=== PATIENT | female | born 1970 | race Caucasian/White ===

== ENCOUNTER 2017-12-30 16:54 | Outpatient (RCR) | payer BC, SELFPAY ==
--- NOTE | 2017-12-30 16:00 | PAPFT_PTH ---
PATIENT: Maribel Duarte LOC: [facility] U#:[id number] AGE/SX: 47/F ROOM: RE12/30/[address]: Blessing Dowell MD, DC : 1970 BED: DIS: 01/07/2018 SPEC #: [id number] RECD: 12/31/17 12:49 STATUS: AIYANA REQ #: [id number] AL: 12/30/17 16:[address]: Blessing Dowell DEPT: REPLACED BY [facility] Cytology RECD BY: Gracy Duff Tissues: 1 - CX/ENDOCX FOR PAP SMEARS Procedures: PAP THIN PREP/UVM Screening HPV DNA PROBE Comments: [id number]
== END 2018-01-07 23:59 | disposition home or self-care (01) ==
LOC: LBN 16:54
PROVIDERS: PCP Family Medicine; Visit Provider Family Medicine
DX: Z12.4 Encounter for screening for malignant neoplasm of cervix (principal); Z11.51 Encounter for screening for human papillomavirus (HPV)
CPT/HCPCS: 88142; 87624

== ENCOUNTER 2018-01-05 01:06 | Outpatient (CLI) | payer BC, SELFPAY ==
--- NOTE | 2018-01-05 08:31 | DI.RAD_ITS ---
SYMPTOM/DIAGNOSIS: DERANGEMENT OF RT KNEE, M23.91 RIGHT KNEE: Four views. No priors. There is mild joint space narrowing and periarticular spurring involving all three joint compartments. No acute fracture, dislocation , lytic or sclerotic lesion is identified. There is a small enthesophyte at the superior aspect of the patella. The soft tissues are unremarkable. IMPRESSION: Moderate degenerative changes of the right knee.
[2018-01-05 10:38] LABS: TSH (W/Ref FT4) 3.02 uIU/mL (0.358-3.74)
[2018-01-05 10:52] LABS: Vitamin D 25 Total 31.6 ng/ml (30-100)
== END 2018-01-05 01:26 ==
PROVIDERS: PCP Family Medicine; Visit Provider Family Medicine
DX: Z00.00 Encounter for general adult medical examination without abnormal findings (principal); M23.91 Unspecified internal derangement of right knee; M17.11 Unilateral primary osteoarthritis, right knee; E03.9 Hypothyroidism, unspecified; E55.9 Vitamin D deficiency, unspecified
CPT/HCPCS: 36415; 73562; 82306; 84443

== ENCOUNTER 2019-12-29 02:26 | Outpatient (CLI) | payer BC, SELFPAY ==
[2019-12-29 15:49] LABS: TSH (W/Ref FT4) 1.72 uIU/mL (0.36-3.74)
[2019-12-30 05:18] LABS: Vitamin D 25 Total 37.5 ng/ml (30-100)
== END 2019-12-29 02:46 ==
PROVIDERS: PCP Family Medicine; Visit Provider Family Medicine
DX: Z00.00 Encounter for general adult medical examination without abnormal findings (principal)
CPT/HCPCS: 36415; 82306; 84443

== ENCOUNTER 2020-02-07 20:59 | Outpatient (REF) | payer BC, SELFPAY ==
--- NOTE | 2020-02-07 14:30 | PAPFT_PTH ---
PATIENT: Maribel Duarte LOC: [facility]#:[id number] AGE/SX: 49/F ROOM: RE02/07/[address]: Blessing Dowell MD, DC : 1970 BED: DIS: 02/07/2020 SPEC #: [id number] RECD: 02/08/20 13:02 STATUS: AIYANA REPilar #: [id number] AL: 02/07/20 14:[address]: Blessing Dowell DEPT: [facility] Cytology RECD BY: Gracy Duff Tissues: 1 - CX/ENDOCX FOR PAP SMEARS Procedures: PAP THIN PREP/UVM Screening HPV DNA PROBE Comments: [id number]
== END 2020-02-07 21:19 ==
LOC: LBN 20:59
PROVIDERS: PCP Family Medicine; Visit Provider Family Medicine
DX: Z12.4 Encounter for screening for malignant neoplasm of cervix (principal); R87.610 Atypical squamous cells of undetermined significance on cytologic smear of cervix (ASC-US); R87.810 Cervical high risk human papillomavirus (HPV) DNA test positive; Z11.51 Encounter for screening for human papillomavirus (HPV)
CPT/HCPCS: 88142; 87624

== ENCOUNTER 2020-02-24 17:21 | Outpatient (REF) | payer BC, SELFPAY ==
--- NOTE | 2020-02-24 16:25 | ENDO_PTH ---
PATIENT: Maribel Duarte LOC: [facility]#:[id number] AGE/SX: 49/F ROOM: RE02/24/[address]: Lucero Monroe : 1970 BED: DIS: 02/24/2020 SPEC #: [id number] RECD: 02/24/20 17:47 STATUS: AIYANA REQ #: [id number] AL: 02/24/20 16:[address]: Lucero Monroe DEPT: Surgical Specimen RECD BY: Gracy Duff ENTERED: 02/24/20 17:48 SP TYPE: Endo OTHR DR: Blessing Dowell MD, DC Tissues: 1 - ENDOCERVICAL BX/CURRETTE Procedures: GROSS AND MICRO LEVEL 4 Comments: [id number]
== END 2020-02-24 17:41 ==
LOC: LBN 17:21
PROVIDERS: PCP Family Medicine; Visit Provider Obstetrics & Gynecology Gynecology
DX: N87.9 Dysplasia of cervix uteri, unspecified (principal); R87.610 Atypical squamous cells of undetermined significance on cytologic smear of cervix (ASC-US)
CPT/HCPCS: 88305

== ENCOUNTER 2020-09-22 08:11 | Day surgery (SDC) | payer BC, SELFPAY ==
[2020-09-22 08:30] VITALS: BP 127/83; PULSE 77; RESP 16; TEMP 36.3; O2SAT 96
[2020-09-22] MEDS: Lactated Ringers 1,000 ML 80 ML IV (08:45)
--- NOTE | 2020-09-22 08:57 | W.ANESPRE ---
General Info Date of Service Date Performed: 09/22/20 Height: 5 ft 3 in Weight: 81 kg Body Mass Index (BMI): 31.6 Surgical Procedure: Operation Date: 09/22/20 09:20 Proposed Procedures Side Surgeon p Colonoscopy Cheli Andrews DO Meds Allergies and Home Medications Allergies Allergy/AdvReac Type Severity Reaction Status Date / Time No Known Drug Allergies Allergy Verified 09/22/20 08:27 Home Medication Medication Instructions Recorded levonorgestrel [Mirena] 1 ea INTRAUTERINE ONCE #1 implant 08/29/17 levothyroxine 100 mcg tablet 100 mcg PO DAILY #90 tab-cap 12/30/19 bisacodyl 5 mg tablet,delayed 5 mg PO ONCE #4 tab 09/18/20 release polyethylene glycol 3350 17 238 g PO ONCE #238 g 09/18/20 gram/dose oral powder Current Visit Medications: Current Medications Generic Name Dose Route Start Last Admin Trade Name Freq PRN Reason Stop Dose Admin Ringer's Solution 1,000 mls @ 80 mls/hr 09/22/20 06:00 09/22/20 08:45 IV 10/21/20 23:59 80 mls/hr INFUSION ROBBY Administration IV Miscellaneous Supplies 1 each 09/22/20 06:00 Iv Access IV 10/21/20 23:59 DIRECTED ROBBY Sodium Chloride 0 ml 09/22/20 06:00 Normal Saline Flush 10 Ml Syr IV 10/21/20 23:59 PRN PRN Sodium Chloride 0 ml 09/22/20 06:00 Normal Saline 10 Ml Vial IJ 10/21/20 23:59 DIRECTED PRN Sterile Water 0 ml 09/22/20 06:00 Water,Injection,Sterile 10 Ml Vial IJ 10/21/20 23:59 DIRECTED PRN PFSH Active Problems Active Problems: Problem Status Onset Code History of colposcopy Z98.890 ASCUS favoring dysplasia HPV test positive ASCUS with positive high risk HPV Encounter for screening colonoscopy Z12.11 Breast mass, right N63.10 Eye lesion H57.9 Derangement of right knee M23.91 Actinic keratoses L57.0 Synovial cyst of popliteal space M71.20 LGSIL (low grade squamous intraepithelial dysplasia) 03/06/15 Hypothyroidism 02/06/02 E03.9 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 BILATERAL Clicking jaw syndrome LEFT Dysfunctional uterine bleeding (02/07/04) right ovarian cyst 2.5cm (2004) 6mo. F/U stable 2.2cm IUD - now good HPV in female (11/08/14) Hypothyroidism (02/06/02) LGSIL (low grade squamous intraepithelial dysplasia) (03/06/15) Synovial cyst of popliteal space Surgical History Surgical History hernia repair knee repair Tobacco Smoking/Tobacco Use Status: Never Passive smoking exposure: No Alcohol Alcohol Intake: current Alcohol intake frequency: a few times a week Alcohol type: beer, wine and hard liquor Substance Use Substance use: Never Vital Signs and Lab Results Vital Signs Most Recent Vital Signs in EMR: Most Recent Vital Signs Temp Pulse Resp BP Pulse Ox 36.3 C L 77 16 127/83 96 09/22/20 08:30 09/22/20 08:30 09/22/20 08:30 09/22/20 08:30 09/22/20 08:30 Point of Care Results Point of Care Results: POC- Test(urine) Negative 09/22/20 08:36 Lab Results Blood Type / Crossmatch: No Data to Display Complete Blood Count: No Data to Display Complete Metabolic Panel: No Data to Display Liver Function Panel: No Data to Display Coagulation Panel: No Data to Display Cardiac Panel: No Data to Display Arterial Blood Gas: No Data to Display Venous Blood Gas: No Data to Display Pancreas Panel: No Data to Display Thyroid Panel: No Data to Display Infectious Disease: No Data to Display Blood Cultures: No Data to Display Toxicology Panel: No Data to Display Panel: No Data to Display Anesthesia Assessment and Plan Anesthesia History Personal History: No History of Anesthesia Complications Family History: No Family History of Anesthesia Complications Exercise Tolerance Exercise Tolerance: Metabolic Equivalents>4 Pertinent Negatives Pertinent Negatives: No Symptoms of GERD, No Major Cardiovascular Symptoms or Complaints, No Major Pulmonary Symptoms or Complaints and No History of CVA/TIA Cardiac & Pulmonary Exam Cardiac Exam: Normal S1/S2 Heart Sounds Pulmonary Exam: Clear Bilateral Breath Sounds Airway Exam Known Difficult Airway: No Mallampati Class: 2 Mouth Opening: Normal (> 3cm) Thyromental Distance: Greater than 3 cm Neck Range of Motion: Full ROM Neck Circumference: Normal Teeth Condition: Normal Dentition ASA Classification ASA Score: ASA 2 Emergency Case?: No NPO Status NPO Status: NPO Clears >2 hours, Solids >8 hours Status Status: Negative HCG Anesthesia Plan Resuscitation Status: Full Code Anesthesia Technique: General Anesthesia Airway Planned: Natural Airway Monitors Used: Standard Monitors
[2020-09-22 08:58] VITALS: BMI 31.6
--- NOTE | 2020-09-22 10:34 | W.ANESPOSTOP ---
Postoperative Evaluation Date, Time and Location Date Performed: 09/22/20 Time Performed: 10:35 Patient Location: Day Surgery Unit Vital Signs Most Recent Imported Vital Signs: Most Recent Vital Signs Temp Pulse Resp BP Pulse Ox 36.3 C L 77 16 127/83 96 09/22/20 08:30 09/22/20 08:30 09/22/20 08:30 09/22/20 08:30 09/22/20 08:30 Most Recent Manually Entered Vital Signs: Adult Blood Pressure: 98/63 Heart Rate: 70 Respirations: 12 Oxygen Saturation (%): 95 Temperature (C): 36.1 C Pain Score (0-10 Scale): 0 Pain Score Most Recent Pain Score: Most Recent Pain Score Pain Level 0 09/22/20 08:30 Assessment Mental Status: Awake (Alert & Oriented to Patient Baseline) Airway and Respiratory Function: Patent airway with normal (patient baseline) respiratory exam Cardiovascular Function: Hemodynamically Stable Hydration Status: Adequately Hydrated Nausea & Vomiting: No Nausea or Vomiting Pain: Pt. Denies Any Pain Peripheral Nerve Block: Patient did not receive a nerve block
[2020-09-22 10:36] VITALS: BP 98/63; PULSE 70; RESP 12; TEMPC 36.1; O2SAT 95
[2020-09-22 10:38] VITALS: BP 98/63; PULSE 68; RESP 18; TEMP 36.1; O2SAT 96
--- NOTE | 2020-09-22 10:42 | W.COLOREPORT ---
Date of service: 09/22/20 Time of Service: 10:42 Colonoscopy Report Date of procedure: 09/22/20 Pre-op diagnosis general: CRC screen Post-op diagnosis procedure note: other (E. hemorrhoids ) Surgeon: Cheli Andrews Anesthesia Type: General:No Airway Estimated blood loss (mL): 0 Pathology: none sent Complications: Other Disposition: no change Prep: Miralax/Dulcolax Retraction Time: 8 Procedure Description: After informed consent was obtained the patient was taken to the procedure room and placed in a left decubitous position. Monitors were applied and a time out was done. The patients name, date of , procedure, allergies to medications and metal in their body was reviewed. The patient was then sedated. Once sedated and comfortable a rectal exam was done. External exam shows noninflamed or thrombosed external hemorrhoids l. Internal exam revealed a normal sphincter tone and no palpable masses. The scope was then introduced and retrofelexed. No internal hemorrhoids were identified. The scope was then advanced to the cecum without good difficulty. The TI and appendiceal orifice were identified. The prep was 8. The scope was then slowly retracted over minutes back into the rectum. The scope was removed and There are no polyps, AVMs, diverticula visualized today. the patient was woken up and taken back to Same day surgery in stable condition. The patient tolerated the procedure well and there were no immediate complications. Follow up: The patient should follow up in 10 years unless they develop changes in bowel habits or other new gastrointestinal complaints.
--- NOTE | 2020-09-22 10:44 | PDOC.DSDIS_ITS ---
Discharge Plan Disposition Patient Disposition: HOME Condition: Good Discharge Details Reason For Visit: CRC screening Attending Provider: Cheli Andrews Primary Care Provider: Blessing Dowell Home Meds and New Rx's Prescriptions: Continued Mirena 1 EACH intrauterine device 1 ea Intrauterine ONCE Qty: 1 RF: 0 levothyroxine 100 mcg tablet 100 mcg PO DAILY Qty: 90 RF: 12 Discontinued polyethylene glycol 3350 17 gram/dose powder 238 g PO ONCE Qty: 238 RF: 0 bisacodyl [Dulcolax (bisacodyl)] 5 mg tablet,delayed release (DR/EC) 5 mg PO ONCE Qty: 4 RF: 0 Discharge Instructions Additional Instructions: DSU Colonoscopy Post- Op Instructions Instructions for Everyone who is given Anesthesia: For your safety, please do the following for the next tw enty-four (24) hours: *Do Not operate a motor vehicle (car, truck, motorcycle, etc.) *Do Not drink alcoholic beverages or use any recreational drugs for the first 24 hours or while taking pain medications. The medications in your body may have a reaction that can be dangerous. *Do Not make any important decisions or sign any important papers. Findings: Normal colon Follow up: repeat in 10 yrs, unless notice change in bowels/persistent bleeding/unexplained wt loss. 1. No lifting over 20 pounds or strenuous activity for the first 24 hours after your procedure. After 24 hours there are no restrictions on your activity but you may feel fatigued for a few days. 2. After you arrive home you may have a light meal and return to your normal diet as you can tolerate it without feeling sick to your stomach. 3. You may have a bloated, gaseous feeling in your belly (abdomen) after a colonoscopy. Passing gas and belching will help. Walking or lying down on your left side with your knees flexed may relieve the discomfort. Call the office at [phone] (Office) or [phone] (Hospital) right away if you notice any of the following: a.Vomiting of blood or ?coffee ground stools?. b.Rectal bleeding 1Tbsp, blood clots or continuous bleeding. c.Severe belly (abdominal) pain. d.A hard distended belly (abdomen) and an inability to pass gas. 4. Please don?t expect to have a normal BM (bowel movement) for 2-3 days after your procedure. 5. If there are questions regarding the findings of your procedure, please contact your doctor 6. If you are unable to contact your doctor with a problem, contact the hospital at [phone]. 7. Continue all your regular medications unless directed otherwise. I understand the above instructions and have no questions. Signature of Patient or Adult Escort Name of Responsible Adult Escort Signature of Nurse Date/Time Activity:: see above Diet:: see above Discharge Orders Discharge Orders: Discharge Order (Routine); Ordered 09/22/20 Ordered By: Cheli Andrews DS: Diagnosis Discharge Diagnosis (1) Colon cancer screening: Status: Acute
[2020-09-22 11:13] VITALS: BP 113/65; PULSE 58; RESP 16; TEMP 36.2; O2SAT 99
== END 2020-09-22 10:15 | disposition home or self-care (01) ==
PROVIDERS: PCP Family Medicine; Visit Provider Surgery
PROC: 0DJD8ZZ Inspection of Lower Intestinal Tract, Via Natural or Artificial Opening Endoscopic (ICD-10-PCS; CPT 45378; principal; 2020-09-22 09:15)
DX: Z12.11 Encounter for screening for malignant neoplasm of colon (principal); K64.4 Residual hemorrhoidal skin tags
CPT/HCPCS: 45378; 81025

== ENCOUNTER 2020-09-22 08:50 | Outpatient (REF) | payer BC, SELFPAY ==
[2020-09-22 10:06] LABS: TSH (W/Ref FT4) 3.22 uIU/mL (0.36-3.74)
[2020-09-22 21:47] LABS: Calculated LDL 233 mg/dL (<100); Cholesterol 319 mg/dL (<200); HDL Cholesterol 53 mg/dL (40-60); Triglyceride 165 mg/dL (<150)
== END 2020-09-22 08:51 | disposition home or self-care (01) ==
LOC: LBO 08:50
PROVIDERS: PCP Family Medicine; Visit Provider Family Medicine
DX: Z00.00 Encounter for general adult medical examination without abnormal findings (principal)
CPT/HCPCS: 80061; 84443

== ENCOUNTER 2021-03-15 11:12 | Outpatient (REF) | payer BC, SELFPAY ==
--- NOTE | 2021-03-15 10:00 | PAPFT_PTH ---
PATIENT: Maribel Duarte LOC: [facility]#:[id number] AGE/SX: 50/F ROOM: RE03/15/[address]: Blessing Dowell MD, DC : 1970 BED: DIS: 03/15/2021 SPEC #: [id number] RECD: 03/15/21 12:45 STATUS: AIYANA REPilar #: [id number] AL: 03/15/21 10:[address]: Blessing Dowell DEPT: [facility] Cytology RECD BY: Gracy Duff Tissues: 1 - CX/ENDOCX FOR PAP SMEARS Procedures: PAP THIN PREP/UVM Screening HPV DNA PROBE Comments: [id number]
== END 2021-03-15 11:13 | disposition home or self-care (01) ==
LOC: LBN 11:12
PROVIDERS: PCP Family Medicine; Visit Provider Family Medicine
DX: Z12.4 Encounter for screening for malignant neoplasm of cervix (principal); Z11.51 Encounter for screening for human papillomavirus (HPV)
CPT/HCPCS: 88142; 87624

== ENCOUNTER 2021-05-17 00:59 | Outpatient (CLI) | payer BC, SELFPAY ==
--- NOTE | 2021-05-17 06:30 | DI.MAMMO_ITS ---
Exam(s) MAMMO SCREENING EXAM: MAMMO SCREENING CLINICAL HISTORY: screening,Z12.39 TECHNIQUE: Mammograms were interpreted according to the usual protocol including computer analysis w [employer] CAD system, tomosynthesis and C-view imaging. COMPARISON: FINDINGS: The breasts are heterogeneously dense. No dominant mass is identified in either breast. However the re is an area of asymmetric density with a vaguely masslike appearance seen superiorly and centrally in the left breast on MLO view. Additional evaluation with spot compression view and breast ultrasou nd recommended. No dominant mass or clumped microcalcification of the right breast. There are scattered microcalcifications of the left breast, grossly unchanged from prior outside exam ination of May 2020. Prior whole breast mammography not available for comparison. IMPRESSION: Additional mammographic views left breast and left breast ultrasound requested as described above. BI-RADS Category 0 - Assessment Incomplete: Need additional imaging evaluation Breast Density - Category C - Heterogeneously dense
== END 2021-05-17 01:19 ==
PROVIDERS: PCP Family Medicine; Visit Provider Family Medicine
DX: Z12.31 Encounter for screening mammogram for malignant neoplasm of breast (principal); R92.8 Other abnormal and inconclusive findings on diagnostic imaging of breast
CPT/HCPCS: 77063; 77067

== ENCOUNTER 2021-06-01 01:32 | Outpatient (CLI) | payer BC, SELFPAY ==
--- NOTE | 2021-06-01 10:45 | DI.MAMMO_ITS ---
Exam(s) MG MAMMO SCREEN CALL BACK UNI US BREAST LT LIMITED EXAM: MG MAMMO SCREEN CALL BACK UNI and U/S breast LT limited CLINICAL HISTORY: F/U ABNL MAMMO, ASYMMETRIC DENSITY SUPERIORLY CENTRALLY IN LT BREAST. TECHNIQUE: Craniocaudal and mediolateral oblique Full Field Digital Mammography views of the left br east with Computer Aided Diagnosis followed by Tomosynthesis and left breast ultrasound. COMPARISON: Comparison with prior examinations. FINDINGS: Mammography/Tomosynthesis: Masses/Architectural Distortion: There is a well-circumscribed ovoid density again seen in the upper outer quadrant of the left breast. Microcalcifictions: No suspicious pleomorphic-type are seen. Skin Thickening/Nipple Retraction: None. Limited left breast US: Echotexture: Normal appearance of the glandular tissue. Shadowing: No suspicious foci. Cyst: There are cysts seen in the upper inner and upper outer quadrants of the left breast. The larg est spans the upper outer and upper inner quadrants. It measures 2.8 cm maximally and is a simple cy st. This likely corresponds to the large ovoid density seen on the mammogram. Several smaller cysts are also noted. The next largest lies at 3 o'clock 3 cm from the nipple and measures 1.3 cm. Solid lesions: None seen. Ductal dilation: None. IMPRESSION: 1. No evidence of malignancy is noted. 2. Unless there is more urgent need, follow-up screening mammography is recommended, as per [place] [employer] guidelines. 3. The findings were discussed with the patient on the date of the examination. BI-RADS Category 2 - Benign Findings Breast Density - Category C - Heterogeneously dense Breast density Category C or D implies that the patient has dense breast tissue. Dense breast tissue can make it harder to find cancer on a mammogram. Dense breast tissue is also associated with an incr eased risk of breast cancer. This information about the result of the mammogram report was provided to the patient to raise their awareness. Use this report when you speak with the patient about their risks for breast cancer, which includes their family history. At that time, you may recommend additional screening tests (Ultrasoun d or MRI) as these tests may add significant information. A negative radiographic report should not delay biopsy if a dominant or clinically suspicious mass is present. Up to ten percent of cancers are not identified on mammography. A negative report may reinforce clinical impression. Adenosis and dense breasts may obscure an underlying neoplasm. False positive reports average 6 to 10%. Patient will receive a letter notifying them of these results.
== END 2021-06-01 01:52 ==
PROVIDERS: PCP Family Medicine; Visit Provider Family Medicine
DX: Z12.31 Encounter for screening mammogram for malignant neoplasm of breast (principal); R92.8 Other abnormal and inconclusive findings on diagnostic imaging of breast
CPT/HCPCS: 76642; 77063; 77067

== ENCOUNTER 2021-07-24 11:53 | Outpatient (REF) | payer BC, SELFPAY ==
--- NOTE | 2021-07-24 10:00 | SKI_PTH ---
PATIENT: Maribel Duarte LOC: [facility] U#:[id number] AGE/SX: 50/F ROOM: RE07/24/[address]: Blessing Dowell MD, DC : 1970 BED: DIS: 07/24/2021 SPEC #: [id number] RECD: 07/24/21 12:40 STATUS: AIYANA REQ #: [id number] AL: 07/24/21 10:[address]: Blessing Dowell DEPT: Surgical Specimen RECD BY: Gracy Duff Tissues: 1 - SKIN BIOPSY(SHAVE/PUNCH) Procedures: SKIN LEVEL 4 Comments: [id number]
== END 2021-07-24 11:54 | disposition home or self-care (01) ==
LOC: LBN 11:53
PROVIDERS: PCP Family Medicine; Visit Provider Family Medicine
DX: D23.61 Other benign neoplasm of skin of right upper limb, including shoulder
CPT/HCPCS: 88305

== ENCOUNTER 2022-05-22 01:16 | Outpatient (CLI) | payer BC, SELFPAY ==
--- NOTE | 2022-05-22 06:45 | DI.MAMMO_ITS ---
Exam(s) MAMMO SCREENING EXAM: MAMMO SCREENING CLINICAL HISTORY: screening,Z12.39 TECHNIQUE: Bilateral full field digital CC and MLO mammographic images were obtained with 3D tomosyn thesis and utilizing computer aided detection (CAD). COMPARISON: Available for comparison. FINDINGS: Masses/Architectural Distortion: There is again seen a well-circumscribed nodule in the upper central left breast consistent with the previously identified cyst. No suspicious masses are seen. No area s of architectural distortion are present. Microcalcifications: No suspicious pleomorphic-type are seen. Skin Thickening/Nipple Retraction: None. IMPRESSION: 1. No significant interval change with no specific features of malignancy noted. 2. Unless there is more urgent need, screening mammography is recommended, as per [place] [employer] guidelines. BI-RADS Category 2 - Benign Findings Breast Density - Category C - Heterogeneously dense Breast density category C or D implies that the patient has dense breast tissue. Dense breast tissue is very common and is not abnormal but dense breast tissue can make it harder to find cancer on a ma mmogram. Also, dense breast tissue may increase their breast cancer risk. This information about the result of the mammogram report was provided to the patient to raise their awareness. Use this report when you speak with the patient about their risks for breast cancer, which includes their family hist ory. At that time, you may recommend for more screening tests (Ultrasound or MRI) as they might be us eful based on their risk. A negative radiographic report should not delay biopsy if a dominant or clinically suspicious mass is present. Up to ten percent of cancers are not identified on mammography. A negative report may reinforce clinical impression. Adenosis and dense breasts may obscure an underlying neoplasm. False positive reports average 6 to 10%. Patient will receive a letter notifying them of these results.
[2022-05-22 09:43] LABS: Hemoglobin A1C 5.6 % (<5.7)
[2022-05-22 10:04] LABS: TSH (W/Ref FT4) 4.89 uIU/mL (0.36-3.74)
[2022-05-22 10:25] LABS: FREE T4 1.02 ng/dL (0.76-1.46)
== END 2022-05-22 01:36 ==
LOC: DI 01:16
PROVIDERS: PCP Family Medicine; Visit Provider Family Medicine
DX: Z00.00 Encounter for general adult medical examination without abnormal findings (principal); Z13.21 Encounter for screening for nutritional disorder; E03.9 Hypothyroidism, unspecified; Z13.1 Encounter for screening for diabetes mellitus
CPT/HCPCS: 36415; 77063; 77067; 83036; 84439; 84443

== ENCOUNTER → 2023-05-26 03:00 | Outpatient (CLI) | payer BC, SELFPAY ==
--- NOTE | 2023-05-26 07:15 | DI.MAMMO_ITS ---
Exam(s) MAMMO SCREENING EXAM: MAMMO SCREENING CLINICAL HISTORY: screening,z12.39. TECHNIQUE: Bilateral full field digital CC and MLO mammographic images were obtained with 3D tomosyn thesis and utilizing computer aided detection (CAD). COMPARISON: Prior mammograms were reviewed. FINDINGS: There has been no significant change in the appearance and distribution of the fibroglandular tissue. There are no new focal right breast findings. In the left breast the previously described superiorly located nodule as significantly decreased in s ize, further evidence that it was a simple cyst. There are no new obvious spiculated masses nor malignant-appearing microcalcification groups in eithe r breast. There is no significant architectural distortion nor skin thickening-retraction. IMPRESSION: No radiographic evidence of malignancy. Previously present large cyst in the upper left breast is les s evident on the present study and therefore has most probably significantly decreased in size. BI-RADS Category 2 - Benign Findings Breast Density - Category C - Heterogeneously dense Breast density Category C or D implies that the patient has dense breast tissue. Dense breast tissue can make it harder to find cancer on a mammogram. Dense breast tissue is also associated with an incr eased risk of breast cancer. This information about the result of the mammogram report was provided to the patient to raise their awareness. Use this report when you speak with the patient about their risks for breast cancer, which includes their family history. At that time, you may recommend additional screening tests (Ultrasoun d or MRI) as these tests may add significant information. A negative radiographic report should not delay biopsy if a dominant or clinically suspicious mass is present. Up to ten percent of cancers are not identified on mammography. A negative report may reinforce clinical impression. Adenosis and dense breasts may obscure an underlying neoplasm. False positive reports average 6 to 10%. Patient will receive a letter notifying them of these results.
== END ==
PROVIDERS: PCP Family Medicine; Visit Provider Family Medicine
DX: Z12.31 Encounter for screening mammogram for malignant neoplasm of breast (principal)
CPT/HCPCS: 77063; 77067

== ENCOUNTER 2023-05-27 12:12 | Outpatient (REF) | payer BC, SELFPAY ==
--- NOTE | 2023-05-27 10:40 | ENDOMET_PTH ---
PATIENT: Maribel Daurte LOC: [facility] U#:[id number] AGE/SX: 52/F ROOM: RE05/27/[address]: Pham Stauffer MD : 1970 BED: DIS: 05/27/2023 SPEC #: [id number] RECD: 05/27/23 12:30 STATUS: AIYANA REQ #: [id number] AL: 05/27/23 10:[address]: Pham Stauffer DEPT: Surgical Specimen RECD BY: Gracy Duff ENTERED: 05/27/23 12:30 SP TYPE: Endomet OTHR DR: Blessing Dowell MD, DC Tissues: 1 - ENDOMETRIUM BX/CURRETTE Procedures: GROSS AND MICRO LEVEL 4 Comments: [id number]
== END 2023-05-27 12:13 | disposition home or self-care (01) ==
LOC: LBN 12:12
PROVIDERS: PCP Family Medicine; Visit Provider Obstetrics & Gynecology
DX: N92.4 Excessive bleeding in the premenopausal period (principal)
CPT/HCPCS: 88305

== ENCOUNTER 2023-06-06 02:11 | Outpatient (CLI) | payer BC, SELFPAY ==
[2023-06-06 09:06] LABS: Hemoglobin A1C 5.6 % (<5.7)
[2023-06-06 10:02] LABS: ALT 57 U/L (14-59); AST 25 U/L (15-37); Albumin 4.1 g/dL (3.4-5.0); Alkaline Phosphatase 65 U/L (46-116); Anion Gap 10.1 mmol/L (3-11); BUN 17 mg/dL (7-18); Bilirubin, Total 0.6 mg/dL (0.2-1.0); CO2 27.9 mmol/L (21.0-32.0); CREATININE 0.9 mg/dL (0.55-1.02); Calcium 8.9 mg/dL (8.5-10.1); Calculated LDL 202 mg/dL (<100); Chloride 105 mmol/L (98-107); Cholesterol 281 mg/dL (<200); Estimated GFR 76.44 (mL/min/1.73m2); Glucose 97 mg/dL (74-106); HDL Cholesterol 46 mg/dL (40-60); Potassium 4.3 mmol/L (3.5-5.1); Sodium 143 mmol/L (136-145); TSH (W/Ref FT4) 4.66 uIU/mL (0.36-3.74); Total Protein 7.3 g/dL (6.4-8.2); Triglyceride 168 mg/dL (<150)
[2023-06-06 10:24] LABS: FREE T4 0.91 ng/dL (0.76-1.46)
[2023-06-09 14:11] LABS: Apolipoprotein A1, S 119 mg/dL (>=140); Apolipoprotein B, S 144 mg/dL (See Comment); Apolipoprotein B/A 1 ratio 1.2 (See Comment)
== END 2023-06-06 02:12 | disposition home or self-care (01) ==
PROVIDERS: PCP Family Medicine; Visit Provider Family Medicine
DX: I10 Essential (primary) hypertension (principal); Z00.00 Encounter for general adult medical examination without abnormal findings; E03.9 Hypothyroidism, unspecified
CPT/HCPCS: 36415; 80053; 80061; 82172; 83036; 84439; 84443

== ENCOUNTER 2024-07-02 00:46 | Outpatient (CLI) | payer BC, SELFPAY ==
[2024-07-02 09:51] LABS: HGB 14.9 g/dL (11.2-15.7); MCH 31.7 pg (27.0-33.0); MCHC 33.1 % (32.0-36.0); MCV 96 fL (80-95); MPV 9.3 fL (8.0-11.0); Platelet Count 295 10^3/uL (130-400); RDW 12.3 % (11.7-14.6); RDW-SD 44.4 fL; WBC 4.98 10^3/uL (4.4-10.8)
[2024-07-02 10:42] LABS: ALT 51 U/L (14-59); AST 24 U/L (15-37); Albumin 4.3 g/dL (3.4-5.0); Alkaline Phosphatase 68 U/L (46-116); Anion Gap 9.4 mmol/L (3-11); BUN 17 mg/dL (7-18); Bilirubin, Total 0.5 mg/dL (0.2-1.0); CO2 27.6 mmol/L (21.0-32.0); CREATININE 0.8 mg/dL (0.55-1.02); Calcium 9.5 mg/dL (8.5-10.1); Calculated LDL 118 mg/dL (<100); Chloride 106 mmol/L (98-107); Cholesterol 197 mg/dL (<200); Ferritin 112 ng/mL (8-252); Glucose 95 mg/dL (74-106); HDL Cholesterol 61 mg/dL (>or=50); Potassium 4.4 mmol/L (3.5-5.1); Sodium 143 mmol/L (136-145); TSH (W/Ref FT4) 1.12 uIU/mL (0.36-3.74); Total Protein 7.8 g/dL (6.4-8.2); Triglyceride 93 mg/dL (<150)
[2024-07-02 10:56] LABS: Iron 103 ug/dL (50-170)
== END 2024-07-02 00:47 | disposition home or self-care (01) ==
LOC: LBO 00:47
PROVIDERS: PCP Family Medicine; Visit Provider Family Medicine
DX: Z00.00 Encounter for general adult medical examination without abnormal findings (principal); I10 Essential (primary) hypertension; E03.9 Hypothyroidism, unspecified
CPT/HCPCS: 36415; 80053; 80061; 85027; 82728; 83540; 84443

== ENCOUNTER 2024-07-02 09:14 | Outpatient (RCR) | payer BC, SELFPAY | END 2024-07-07 23:59 | disposition home or self-care (01) | LOC: CARDOPNVT 09:14 | PROVIDERS: PCP Family Medicine; Visit Provider Internal Medicine Cardiovascular Disease | DX: R00.2 Palpitations (principal); I49.1 Atrial premature depolarization | CPT/HCPCS: 93225; 93226 ==

== ENCOUNTER 2024-07-27 02:37 | Outpatient (CLI) | payer BC, SELFPAY ==
[2024-07-27 12:16] LABS: Iron 71 ug/dL (50-170)
[2024-07-27 12:27] LABS: Ferritin 100 ng/mL (8-252)
[2024-07-27 15:57] LABS: Lab Add On Test DONE
[2024-07-27 16:48] LABS: Vitamin B12 379 pg/mL (193-986)
== END 2024-07-27 02:38 | disposition home or self-care (01) ==
LOC: LBO 02:37
PROVIDERS: PCP Family Medicine; Visit Provider Family Medicine
DX: L65.9 Nonscarring hair loss, unspecified (principal)
CPT/HCPCS: 36415; 82607; 82728; 83540

== ENCOUNTER 2024-08-03 01:13 | Outpatient (CLI) | payer BC, SELFPAY ==
--- NOTE | 2024-08-03 08:03 | DI.MAMMO_ITS ---
Exam(s) MAMMO SCREENING EXAM: MAMMO SCREENING CLINICAL HISTORY: screening,z12.39. TECHNIQUE: Bilateral full field digital CC and MLO mammographic images were obtained with 3D tomosyn thesis and utilizing computer aided detection (CAD). COMPARISON: Prior mammograms were reviewed. FINDINGS: Fibroglandular tissue is again noted be moderately dense. There is a the new benign-appearing microcalcification group in the lateral aspect of the right breas t. There are no malignant-appearing microcalcification groups in the right breast. There benign-appearing microcalcifications again noted in the left breast. In the left breast on the tomosynthesis MLO views there is a subtle suggestion of nodule(s ) ranging up to 2 cm. Located 4 cm in from the nipple. There is no significant architectural distortion nor skin thickening-retraction. IMPRESSION: Possible subtle noncalcified nodules left breast. This is in different location from the previously present (2021) cyst. Recommend spot compression MLO view left breast and left breast ultrasound BI-RADS Category 0 - Incomplete: Need additional imaging evaluation Breast Density - Category C - The breast are heterogeneously dense, which may obscure small masses. Breast density Category C or D implies that the patient has dense breast tissue. Dense breast tissue can make it harder to find cancer on a mammogram. Dense breast tissue is also associated with an incr eased risk of breast cancer. This information about the result of the mammogram report was provided to the patient to raise their awareness. Use this report when you speak with the patient about their risks for breast cancer, which includes their family history. At that time, you may recommend additional screening tests (Ultrasoun d or MRI) as these tests may add significant information. A negative radiographic report should not delay biopsy if a dominant or clinically suspicious mass is present. Up to ten percent of cancers are not identified on mammography. A negative report may reinforce clinical impression. Adenosis and dense breasts may obscure an underlying neoplasm. False positive reports average 6 to 10%. Patient will receive a letter notifying them of these results.
== END 2024-08-03 01:33 ==
LOC: DI 01:13
PROVIDERS: PCP Family Medicine; Visit Provider Family Medicine
DX: Z12.31 Encounter for screening mammogram for malignant neoplasm of breast (principal); R92.333 Mammographic heterogeneous density, bilateral breasts
CPT/HCPCS: 77063; 77067

== ENCOUNTER 2024-08-10 01:01 | Outpatient (CLI) | payer BC, SELFPAY ==
--- NOTE | 2024-08-10 | DI.US_ITS ---
Exam(s) MAMMO SCREEN CALL BACK UNI US BREAST LT COMPLETE EXAM: MAMMO SCREEN CALL BACK UNI-LEFT AND COMPLETE LEFT BREAST ULTRASOUND CLINICAL HISTORY: POSSIBLE SUBTLE NODULES LEFT BREAST, DIFF LOCATION FROM PREV R92.8 ABNL. TECHNIQUE: Unilateral spot mammographic images obtained with 3D tomosynthesisand utilizing computer aided detection (CAD). . Complete LEFT breast Ultrasound was also performed, including all 4 quadrants, the retroareolar regio n, and the ipsilateral axilla. COMPARISON: Prior mammograms were reviewed. This additional imaging was performed due to findings described on the recent screening mammogram of 08/03/2024. Her mother was recently diagnosed with breast cancer. FINDINGS: DIAGNOSTIC MAMMOGRAM: Additional mammographic views performed todayare equivocal COMPLETE LEFT BREAST ULTRASOUND: Ultrasound performed today reveals a 6 millimeter benign microcysts at the 12 o'clock position. At the 3 o'clock position there is a 7 millimeter benign microcyst. At the 4 o'clock position there is a lobulated solid nodule wider than taller which measures 11 x 6 m m. Exhibits neutral through transmission. Slight peripheral calcification.. Scanning of the ipsilateral axilla reveals no significant adenopathy. IMPRESSION: 1. At the 4 o'clock position of the left breast there is a lobulated 11 x 6 mm solid nodule. Ultras ound-guided core biopsy is recommended. 2. There are benign microcysts at the 12 o'clock and 3 o'clock positions. . The patient was informed of these findings and recommendations prior to leaving the department today. Findings called by myself to Dr. Brandy Blackmon following completion of this study 08/10/2024. BI-RADS Category 4 - Suspicious Abnormality: Biopsy should be considered Breast Density - Category C - The breast are heterogeneously dense, which may obscure small masses. Breast density Category C or D implies that the patient has dense breast tissue. Dense breast tissue can make it harder to find cancer on a mammogram. Dense breast tissue is also associated with an incr eased risk of breast cancer. This information about the result of the mammogram report was provided to the patient to raise their awareness. Use this report when you speak with the patient about their risks for breast cancer, which includes their family history. At that time, you may recommend additional screening tests (Ultrasoun d or MRI) as these tests may add significant information. A negative radiographic report should not delay biopsy if a dominant or clinically suspicious mass is present. Up to ten percent of cancers are not identified on mammography. A negative report may reinforce clinical impression. Adenosis and dense breasts may obscure an underlying neoplasm. False positive reports average 6 to 10%. Patient will receive a letter notifying them of these results.
== END 2024-08-10 01:21 ==
LOC: DI 01:01
PROVIDERS: PCP Family Medicine; Visit Provider Family Medicine
DX: Z12.31 Encounter for screening mammogram for malignant neoplasm of breast (principal); R92.8 Other abnormal and inconclusive findings on diagnostic imaging of breast; R92.333 Mammographic heterogeneous density, bilateral breasts; D24.2 Benign neoplasm of left breast
CPT/HCPCS: 76642; 77063; 77067

== ENCOUNTER 2024-09-16 10:06 | Outpatient (REF) | payer BC, SELFPAY ==
--- NOTE | 2024-09-16 08:45 | PAPFT_PTH ---
PATIENT: Maribel Duarte LOC: [facility]#:[id number] AGE/SX: 54/F ROOM: RE09/16/[address]: Blessing Dowell MD, DC : 1970 BED: DIS: 09/16/2024 SPEC #: [id number] RECD: 09/16/24 13:16 STATUS: AIYANA REQ #: [id number] AL: 09/16/24 08:[address]: Blessing Dowell DEPT: [facility] Cytology RECD BY: Gracy Duff Tissues: 1 - CX/ENDOCX FOR PAP SMEARS Procedures: PAP THIN PREP/[facility] Screening HPV DNA PROBE Comments: [id number] (HPV 16 & 18/45)
== END 2024-09-16 10:07 | disposition home or self-care (01) ==
LOC: LBN 10:06
PROVIDERS: PCP Family Medicine; Visit Provider Family Medicine
DX: Z12.4 Encounter for screening for malignant neoplasm of cervix (principal)
CPT/HCPCS: 88142; 87624

== ENCOUNTER 2024-12-27 10:34 | Outpatient (CLI) | payer BC, SELFPAY ==
[2024-12-29 09:50] LABS: Lyme Ab w Rflx to Lyme Confirm Negative (Negative)
[2024-12-31 01:29] LABS: B. miyamotoi PCR Negative (Negative); Babesia divergens/MO-1 Negative (Negative); Ehrlichia muris eauclairensis Negative (Negative)
== END 2024-12-27 10:35 | disposition home or self-care (01) ==
LOC: LOS 10:36
PROVIDERS: PCP Family Medicine; Visit Provider Family Medicine
DX: W57.XXXA Bitten or stung by nonvenomous insect and other nonvenomous arthropods, initial encounter (principal); T14.90XA Injury, unspecified, initial encounter
CPT/HCPCS: 36415; 87798; 86618